=== PATIENT | female | born 1990 | race Caucasian/White ===

== ENCOUNTER 2019-06-09 06:51 | Emergency (ER) | payer OTHER ==
[~2019-06-09] VITALS: Ht 160 cm; Wt 74.4 kg
[2019-06-09 06:57] VITALS: BP 144/100
--- NOTE | 2019-06-09 07:00 | NUR ---
PT TAKEN TO BED 12.
--- NOTE | 2019-06-09 07:10 | NUR ---
28 Y FEMALE BIB BOYFRIEND C/O VAGINAL SPOTTING ON AND OFF PAST 1 WEEK, STATES THE SPOTTING WAS DARKER TODAY MORE PINK THAN BEFORE. DENIES PAIN. LMP January. . STATES HAS BEEN CONFIRMED BY [facility]. ADMITS TO TAKING VITAMINS. VSS AT THIS TIME. AA0X4. BED IS DOWN, LOCKED, BED RAIL X 1, ERMD TO SEE PT. HX NONE
--- NOTE | 2019-06-09 08:00 | NUR ---
HEART TONES COMPLETED. HR 145
--- NOTE | 2019-06-09 08:09 | NUR ---
DR SANDOVAL AT BEDSIDE
[2019-06-09 08:17] VITALS: BP 140/96
--- NOTE | 2019-06-09 08:17 | NUR ---
Patient discharged with v/s stable. Written and verbal after care instructions given and explained. Patient verbalized understanding. Ambulatory with steady gait. All questions addressed prior to discharge. Advised to follow up with STUDENT RECORDS COORDINATOR
== END 2019-06-09 08:17 | disposition home or self-care (01) ==
LOC: MED 06:51
DX: O26.892 Other specified pregnancy related conditions, second trimester (principal); R31.9 Hematuria, unspecified; Z3A.16 16 weeks gestation of pregnancy
CPT/HCPCS: 81002; 81025; 99282

== ENCOUNTER 2019-12-17 08:24 | Inpatient (IN) | payer OTHER ==
[~2019-12-17] VITALS: Ht 160 cm; Wt 73.9 kg
[2019-12-17 12:00] VITALS: BP 114/70
--- NOTE | 2019-12-17 12:30 | NUR ---
RECEIVED REPORT ON MINERVA FROM [facility]. PATIENT WAS ORIENTED TO THE UNIT, EDUCATED ON THE SIGNIFICANCE OF THE CALL LIGHT AND HOW TO USE IT. PATIENTS BELONGINGS ACCOUNTED FOR. MRSA NARES SWAB COMPLETED. ADMISSION PROCESS STARTED. PATIENT DENIES CONCERNS AT THIS TIME, DENIES PAIN. DR. SANCHEZ NOTIFIED AND PAGED FOR ORDERS. BED IN LOW POSITION, NO IV FLUID RUNNING AT THIS TIME, CALL LIGHT ON AND WITHIN REACH. WILL CONTINUE TO MONITOR.
[2019-12-17] MEDS: DEXT 5% / NACL 0.45% 1,000 ML IV SCH (14:45)
--- NOTE | 2019-12-17 15:00 | NUR ---
PATIENT WAS SEEN BY DR. SANCHEZ, DR. SANCHEZ ORDERED AN MD CONSULT FROM SURGEON DR. CHRISTIANSON FOR FURTHER REVIEW OF HER ACUTE CHOLECYSTITIS. PATIENT DENIES PAIN AT THIS TIME. DR SANCHEZ PAGED FOR PAIN MEDICATIONS IN THE CASE OF A BILIOUS ATTACK. PATIENTS FATHER IS AT BEDSIDE. WILL CONTINUE TO MONITOR. BED IS IN LOW POSITION, D5 1/2NS RUNNING AT 100 ML/HR IN PATIENTS LEFT AC. PATIENT REPORTS HER LAST BM WAS THE NIGHT OF 12/16/2019.
[2019-12-17 16:00] VITALS: BP 108/72
--- NOTE | 2019-12-17 18:00 | NUR ---
DR CHRISTIANSON EDUCATED MINERVA ON THE LAPAROSCOPIC CHOLECYSTECTOMY PROCEDURE, PATIENT VERBALIZED CONSENT AND WILLINGNESS TO GO THROUGH WITH PROCEDURE. PATIENT WAS PLACED ON IV LEVAQUIN FOR PROPHYLAXIS ANTI INFECTION TX. PATIENT EXPRESSES CONCERN SHE HAS NEVER HAD A SURGERY BEFORE. SHE WAS COMFORTED BY STAFF AND WAS INFORMED OF RISKS AND BENEFITS OF THE PROCEDURE. URINE TEST ORDERED, CT WITHOUT CONTRAST ORDERED. PATIENT IS LAYING IN BED, BED IN LOW POSITION, CALL LIGHT ON AND WITHIN REACH. WILL CONTINUE TO MONITOR.
[2019-12-17] MEDS: LEVOFLOXACIN 750 MG/D5W PREMIX 150 ML IV SCH (18:25)
[2019-12-17] MEDS ORDERED: ACETAMINOPHEN 325 MG TAB PO PRN (18:30)
[2019-12-17] MEDS ORDERED: ONDANSETRON 4 MG/2 ML VIAL IVP PRN (18:30)
[2019-12-17] MEDS ORDERED: HYDROmorphone 1 MG/ML AMP IVP PRN (18:30)
--- NOTE | 2019-12-17 19:20 | NUR ---
RECEIVED REPORT FROM AM SHIFT NURSE. PATIENT ALERT AND ORIENTED X4. NO APPARENT DISTRESS NOTED. VISIBLE CHEST RISE AND FALL. DENIES PAIN NOR DISCOMFORT. NOTED WITH LEFT FOREARM 20G RUNNING IVF. REVIEWED PLAN OF CARE. VERBALIZED UNDERSTANDING. BED ON LOW POSITION. CALL LIGHT WITHIN REACH. WILL CONTINUE TO MONITOR.
--- NOTE | 2019-12-17 19:21 | NUR ---
BEDSIDE SHIFT REPORT GIVEN TO ONCOMING DEVELOPMENT MGR NURSE FOR CONTINUATION OF CARE.
[2019-12-17] MEDS: metroNIDAZOLE 500 MG/NS PREMIX 100 ML IV SCH (20:56)
--- NOTE | 2019-12-17 21:20 | NUR ---
PATIENT ASLEEP IN BED. NO APPARENT DISTRESS NOTED. VISIBLE CHEST RISE AND FALL NOTED. WILL CONTINUE TO MONITOR.
--- NOTE | 2019-12-17 23:15 | NUR ---
ROUNDS DONE. PATIENT ASLEEP IN BED. VISIBLE CHEST RISE AND FALL NOTED. BED ON LOW POSITION. NO APPARENT DISTRESS NOTED. WILL CONTINUE TO MONITOR.
[2019-12-18] VITALS: BP 112/85
--- NOTE | 2019-12-18 00:20 | NUR ---
OFF OF UNIT. WENT TO CT SCAN VIA WHEELCHAIR WITH TECH.
--- NOTE | 2019-12-18 00:35 | NUR ---
CAME BACK FROM CT SCAN. NO APPARENT DISTRESS.
--- NOTE | 2019-12-18 01:10 | NUR ---
ROUNDS DONE. PATIENT ASLEEP IN BED. NO APPARENT DISTRESS NOTED. VISIBLE CHEST RISE AND FALL NOTED. WILL CONTINUE TO MONITOR.
[2019-12-18] MEDS: DEXT 5% / NACL 0.45% 1,000 ML IV SCH ×3 (01:42→18:35)
--- NOTE | 2019-12-18 03:10 | NUR ---
CHECKS DONE. PATIENT ASLEEP IN BED. NO APPARENT DISTRESS NOTED. VISIBLE CHEST RISE AND FALL NOTED. WILL CONTINUE TO MONITOR.
[2019-12-18] MEDS: metroNIDAZOLE 500 MG/NS PREMIX 100 ML IV SCH ×3 (04:22→21:01)
--- NOTE | 2019-12-18 04:54 | NUR ---
PATIENT ASLEEP IN BED. NO APPARENT DISTRESS NOTED. VISIBLE CHEST RISE AND FALL NOTED. WILL CONTINUE TO MONITOR.
[2019-12-18] MEDS: LEVOTHYROXINE 0.05 MG TAB PO SCH (05:34)
--- NOTE | 2019-12-18 05:57 | NUR ---
PATIENT AWAKE IN BED. NO APPARENT DISTRESS NOTED. VISIBLE CHEST RISE AND FALL NOTED. DENIES PAIN NOR DISCOMFORT. WILL CONTINUE TO MONITOR.
[2019-12-18 06:24] LABS: BASOPHILS % (AUTO) 0.4 % (0.0-2.0); EOSINOPHILS # (AUTO) 0.2 K/uL (0-0.4); HEMATOCRIT 35.9 % (36-48); LYMPHOCYTES # (AUTO) 2.2 K/uL (2.5-16.5); LYMPHOCYTES % (AUTO) 33.8 % (20.5-51.1); MEAN CORPUSCULAR HEMOGLOBIN 23 pg (27-31); MEAN CORPUSCULAR HGB CONC 31 g/dL (33-37); MEAN CORPUSCULAR VOLUME 75.8 fL (80-94); MONOCYTES # (AUTO) 0.6 K/uL (0.8-1.0); MONOCYTES % (AUTO) 9.7 % (1.7-9.3); NEUTROPHILS # (AUTO) 3.5 K/uL (1.8-7.7); NEUTROPHILS % (AUTO) 53.1 % (42.2-75.2); PLATELET COUNT (AUTO) 309 K/uL (140-450); RED BLOOD CELL COUNT(AUTO) 4.74 MIL/uL (4.20-5.40); RED CELL DISTRIBUTION WIDTH 24.4 % (11.6-13.7); WHITE BLOOD COUNT (AUTO) 6.6 K/uL (4.8-10.8)
[2019-12-18 06:25] LABS: APPEARANCE,URINE CLEAR (CLEAR); BILIRUBIN,URINE NEGATIVE (NEGATIVE); BLOOD, URINE TRACE-I (NEGATIVE); COLOR,URINE YELLOW (YELLOW); LEUKOCYTE ESTERASE ,URINE 1+ (NEGATIVE); NITRITE, URINE NEGATIVE (NEGATIVE); UGLUCOSE NEGATIVE (NEGATIVE)
[2019-12-18 06:39] LABS: RBC,URINE 0-5 /HPF (0-5)
--- NOTE | 2019-12-18 07:05 | NUR ---
ENDORSED TO AM SHIFT NURSE FOR CONTINUITY OF CARE.
--- NOTE | 2019-12-18 07:06 | NUR ---
RECEIVED REPORT FROM NIGHT NURSE, PT IS ASLEEP IN BED, PT WAKES UP WHEN HER NAMED IS CALL, PT IS STABLE, SAFETY MEASURES IN PLACE, CALL LIGHT WITHIN REACH, WILL CONTINUE TO MONITOR
[2019-12-18 07:12] LABS: ALBUMIN 3.1 g/dL (3.4-5.0); ANION GAP 13.5 (8-16); CARBON DIOXIDE 25.6 mmol/L (21-32); CREATININE 0.9 mg/dL (0.6-1.3); POTASSIUM 4.1 mmol/L (3.5-5.1); TOTAL BILIRUBIN 0.5 mg/dL (0.0-1.0)
[2019-12-18 08:00] VITALS: BP 110/73
--- NOTE | 2019-12-18 08:40 | NUR ---
HANG D51/2NS AT 100ML PER ORDER, PT TOLERATING IT WELL, PT IS STABLE, CALL LIGHT WITHIN REACH.
--- NOTE | 2019-12-18 08:45 | NUR ---
PATIENT HAS BEEN SCREENED AND CATEGORIZED MODERATE NUTRITION RISK. PATIENT WILL BE SEEN WITHIN 3-5 DAYS OF ADMISSION. 12/19/19 12/21/[address]
--- NOTE | 2019-12-18 12:50 | NUR ---
HANG ORDERED MEDICATION, EDUCATION GIVEN, PT IS STABLE, CALL LIGHT WITHIN REACH.
--- NOTE | 2019-12-18 13:40 | NUR ---
PT IS OFF THE UNIT, PT IS IN SURGERY
[2019-12-18] MEDS ORDERED: HYDROmorphone 1 MG/ML AMP ONE (13:54)
[2019-12-18] MEDS ORDERED: HYDROmorphone PFS 2 MG/ML SYR ONE (13:57)
[2019-12-18] MEDS ORDERED: fentaNYL 0.05 MG/ML VIAL ONE (13:58)
[2019-12-18] MEDS ORDERED: LIDOCAINE 1% 500 MG/50 ML VIAL ONE (14:00)
[2019-12-18] MEDS ORDERED: BUPIVACAINE-MPF/EPI 0.25% 30 ML VIAL INJ ONE (14:00)
--- NOTE | 2019-12-18 15:13 | NUR ---
DISCHARGE PLANNING: A 29 Y/O FEMALE PATIENT FROM HOME, WHO CAME IN DUE TO EPIGASTRIC ABDOMINAL PAIN. NO PERTINENT MEDICAL HISTORY. INITIAL DIAGNOSIS OF ACUTE CHOLECYSTITIS. CURRENT LABS INCLUDE WBC 6.6, H/H 11.0/35.9, NA/K 142/4.1, BUN/CREA 6/0.9 AND ALB 3.1. ON LEVOFLOXACIN AND FLAGYL. SURGICAL CONSULT IN PLACE. URINE C/S PENDING. FOR LAP NADEEM TODAY. DC PLAN IS TO GO BACK HOME ONCE STABLE.
[2019-12-18] MEDS ORDERED: ONDANSETRON 4 MG/2 ML VIAL IVP PRN (15:30)
[2019-12-18] MEDS ORDERED: HYDROmorphone 1 MG/ML AMP IVP PRN (15:30)
--- NOTE | 2019-12-18 15:39 | NUR ---
PT STILL IN SURGERY
--- NOTE | 2019-12-18 15:57 | NUR ---
PT BACK FROM THE OR, PT IS STABLE, RESPIRATIONS ARE EVEN AND UNLABORED ON ROOM, IV SITE INTACT, SURGICAL SITE IS INTACT, WILL CONTINUE TO MONITOR, CALL LIGHT WITHIN REACH. FAMILY AT BEDSIDE.
[2019-12-18 16:00] VITALS: BP 115/73
--- NOTE | 2019-12-18 18:20 | NUR ---
HANG PT ORDERED MEDICATION, EDUCATION GIVEN, PT TOLERATED WELL, PT IS STABLE EATING DINNER, CALL LIGHT WITHIN REACH.
[2019-12-18] MEDS: LEVOFLOXACIN 750 MG/D5W PREMIX 150 ML IV SCH (18:21)
--- NOTE | 2019-12-18 19:05 | NUR ---
GAVE REPORT TO NIGHT NURSE FOR CONTINUITY OF CARE, PT IS STABLE
--- NOTE | 2019-12-18 19:05 | NUR ---
RECEIVED REPORT FROM AM SHIFT NURSE. PATIENT AWAKE IN BED. NO APPARENT DISTRESS NOTED. PERIPHERAL IV ON LEFT FOREARM 20G RUNNING IV FLUIDS. NO INFILTRATION NOTED. WITH 4 INCISION SITES ON ABDOMEN. CLEAN AND DRY. DENIES PAIN NOR DISCOMFORT. WILL CONTINUE TO MONITOR.
--- NOTE | 2019-12-18 21:00 | NUR ---
PATIENT AWAKE IN BED. NO APPARENT DISTRESS NOTED. DENIES PAIN NOR DISCOMFORT. WILL CONTINUE TO MONITOR.
[2019-12-18] MEDS: HYDROcodone/APAP 5/325 MG 1 TAB TAB PO PRN (21:49)
--- NOTE | 2019-12-18 23:00 | NUR ---
PATIENT ASLEEP IN BED. NO APPARENT DISTRESS NOTED. VISIBLE CHEST RISE AND FALL NOTED. WILL CONTINUE TO MONITOR.
[2019-12-19] VITALS: BP 109/69
--- NOTE | 2019-12-19 00:55 | NUR ---
ROUNDS DONE. ASSISTED PATIENT TO THE BATHROOM. SAFETY ENSURED. WILL CONTINUE TO MONITOR.
[2019-12-19] MEDS: DEXT 5% / NACL 0.45% 1,000 ML IV SCH (02:41)
--- NOTE | 2019-12-19 02:50 | NUR ---
PATIENT ASLEEP IN BED. NO APPARENT DISTRESS NOTED. VISIBLE CHEST RISE AND FALL NOTED. WILL CONTINUE TO MONITOR.
--- NOTE | 2019-12-19 04:47 | NUR ---
PATIENT ASLEEP IN BED. NO APPARENT DISTRESS NOTED. VISIBLE CHEST RISE AND FALL NOTED. WILL CONTINUE TO MONITOR.
[2019-12-19] MEDS: HYDROcodone/APAP 5/325 MG 1 TAB TAB PO PRN (05:50)
[2019-12-19] MEDS: LEVOTHYROXINE 0.05 MG TAB PO SCH (05:50)
[2019-12-19] MEDS: metroNIDAZOLE 500 MG/NS PREMIX 100 ML IV SCH (05:51)
--- NOTE | 2019-12-19 06:35 | NUR ---
PATIENT ASLEEP IN BED. NO APPARENT DISTRES Addendum: 12/19/19 at 0636 by Cuco Kwan RN DISTRESS NOTED. VISIBLE CHEST RISE AND FALL NOTED. WILL CONTINUE TO MONITOR.
--- NOTE | 2019-12-19 07:27 | NUR ---
ENDORSED TO AM SHIFT NURSE FOR CONTINUITY OF CARE.
--- NOTE | 2019-12-19 07:28 | NUR ---
SHIFT REPORT RECEIVED FROM ASSISTANT DEPARTMENT MANAGER NURSE. PT IS IN BED IN STABLE CONDITION. NO DISTRESS NOTED. NO COMPLAINS OF PAIN. CALL LIGHT IN REACH.
[2019-12-19 08:00] VITALS: BP 128/80
--- NOTE | 2019-12-19 09:30 | NUR ---
PT IS RESTING IN BED AT THIS TIME. NO COMPLAINS OF PAIN. NO DISTRESS NOTED. CALL LIGHT IN REACH
--- NOTE | 2019-12-19 10:29 | NUR ---
PHYLLIS assessment/discharge plan High Risk DC Screen [place]: Terrell Hayes Home Relationship: significant other Pre-Admission Living Arrangements: Lives with Other Other: Terrell Hayes Prior ADL Independent Current Home Health Name/Tel: N/A Current DME/02 Name/Tel: N/A Current Hospice Name/Tel: N/A Current Dialysis Name/Tel: N/A Healthcare Decision Maker: Patient Advance Directive No Information Taught: Advance Directive Community Resources Person Taught: Patient Teaching Tools: Community Resources Computer Generated Print Verbal Factors Affecting Learning: None Evaluation: Gestures Understanding Verbalizes Understanding Educator: PHYLLIS King Discipline: Case Mgt/Social Svcs Tentative Discharge Plan Summary: Patient is a 29 year old female admitted for acute cholecystitis. I met with patient at bedside. Patient alert and oriented x4. Patient lives at home with her significant other Terrell Hayes and plans to return home upon discharge. Patient gave about a month ago, therefore, has not seen her pcp recently. She has been following up with her PHARMACY PICKING TECHNICIAN. She denied hx of mental health. She also denied alcohol/substance abuse. I provided her with education on [email or web address] for community resources. Material Liaison and/or Transmission Specialist will follow up as needed. Signature: PHYLLIS King Date: Dec 19, 2019
--- NOTE | 2019-12-19 11:13 | NUR ---
TOLERATED INCENTIVE SPIROMETRY THERAPY WELL WITHOUT ADVERSE REACTIONS NOTED ENCOURAGED PATIENT WITH ACKNOWLEDGEMENT TO USE INCENTIVE SPIROMETRY EVERY 1-2 HOURS WHILE AWAKE
--- NOTE | 2019-12-19 12:28 | NUR ---
PT IS RESTING IN BED AT THIS TIME. NO COMPLAINS OF PAIN. NO DISTRESS NOTED. CALL LIGHT IN REACH
--- NOTE | 2019-12-19 13:09 | NUR ---
PT WAS DISCHARGED TODAY. PT WAS STABLE. PT WAS TAKENIN WHEEL CHAIR TO HER CHAIR. PT WALKED WITH A STEADY GAITH FROM CHAIR TO CAR. NO COMPLAINS OF PAIN REPORTED. DISCHARGE PHOTOGRAPHS TAKEN. IV REMOVED. NO ACTIVE BLEEDING NOTED. ID BAND REMOVED. DISCHARGE INSTRUCTIONS GIVEN TO PATIENT. PT'S BELONGINGS WITH PATIENBT. PT WAS ACCOMPANIED BY BOYFRIEND UPON DISCHARGE.
== END 2019-12-19 13:43 | disposition home or self-care (01) | DRG 263 ==
LOC: MMU 10:45
PROVIDERS: ADMIT Internal Medicine Pulmonary Disease; ATTEND Internal Medicine Pulmonary Disease
PROC: 0FT44ZZ Resection of Gallbladder, Percutaneous Endoscopic Approach (ICD-10-PCS; principal; 2019-12-18 13:40)
DX: K80.00 Calculus of gallbladder with acute cholecystitis without obstruction (principal); K82.8 Other specified diseases of gallbladder
CPT/HCPCS: 36415; 80053; 81001; 81025; 85025; 85610; 85730; 86886; 86900; 86901; 87081; 87086; 88304; J1170; J1956; J2001; J3010; J3490